=== PATIENT | male | born 1955 | race African-American/Black ===

== ENCOUNTER 2016-09-17 11:29 | Day surgery (SDC) | payer BC ==
[2016-09-07 16:53] LABS: HEMOGLOBIN 13.5 g/dL (13.6-17.8)
[2016-09-07 17:00] LABS: HEMATOCRIT 37.6 % (40.0-51.0)
[2016-09-07 17:05] LABS: BUN (BLOOD UREA NITROGEN) 10 MG/DL (6-23); CHLORIDE, SERUM 103 MMOL/L (96-112); CO2 (CARBON DIOXIDE) 30 MMOL/L (24-34); CREATININE 0.91 MG/DL (0.70-1.30); GFR AFRICAN AMERICAN 105 ML/MIN (>=60); GFR NON AFRICAN AMERICAN 91 ML/MIN (>=60); POTASSIUM, SERUM 4.1 MMOL/L (3.5-5.3); SODIUM, SERUM 139 MMOL/L (135-148)
[2016-09-07 17:06] LABS: CALCIUM, SERUM 8.2 MG/DL (8.5-10.4); GLUCOSE, SERUM 298 MG/DL (60-99)
[~2016-09-17 11:29] MED LIST: ASAB PO; AVAP150 PO; AVAPRO300 MG PO; BUM1 PO; CENTRUM PO; COREG6 PO; DIOV80 PO; GINKO BILOBA; GLUCPH PO; JANUMET1 TAB PO; JANUVIA100 MG PO; JANUVIA50 PO; K500 PO; LEVEMFLXPN SC; LIPITOR40 PO; LOFIB160 PO; LOP25 PO; LOVAZA1 GM PO; MULTIPLE VIT PO; NITROSTAT0.4 MG SL; NORCO1 TA1 PO; NORV10 PO; NORV5 PO; PRILO PO; PRIN10 PO; SEPTRA1 TAB PO; SPIRO25 PO; STARLIX120 PO; WELCHOL 625 MG625 MG PO; WELCHOL PO; WELCHOL POWDER; WELCHOL625 MG OR; XIFAXAN PO; ZOFRANODT8 PO
== END 2016-09-17 23:00 | disposition home or self-care (01) ==
LOC: SDC 11:29
PROVIDERS: Urology
DX: N52.1 Erectile dysfunction due to diseases classified elsewhere (principal); I77.1 Stricture of artery; I25.10 Atherosclerotic heart disease of native coronary artery without angina pectoris; E11.9 Type 2 diabetes mellitus without complications; B19.20 Unspecified viral hepatitis C without hepatic coma; Z53.9 Procedure and treatment not carried out, unspecified reason; Z98.890 Other specified postprocedural states
CPT/HCPCS: 80048; 80076; 85014; 85018; 93005; J1580; J3370

== ENCOUNTER 2016-10-01 11:13 | Observation (INO) | payer SELFPAY ==
[2016-09-26 10:11] LABS: HEMATOCRIT 41.2 % (40.0-51.0); HEMOGLOBIN 14.4 g/dL (13.6-17.8)
[2016-09-26 10:26] LABS: BUN (BLOOD UREA NITROGEN) 12 MG/DL (6-23); CALCIUM, SERUM 9.1 MG/DL (8.5-10.4); CHLORIDE, SERUM 101 MMOL/L (96-112); CO2 (CARBON DIOXIDE) 28 MMOL/L (24-34); CREATININE 0.85 MG/DL (0.70-1.30); GFR AFRICAN AMERICAN 109 ML/MIN (>=60); GFR NON AFRICAN AMERICAN 94 ML/MIN (>=60); GLUCOSE, SERUM 254 MG/DL (60-99); POTASSIUM, SERUM 4.4 MMOL/L (3.5-5.3); SODIUM, SERUM 136 MMOL/L (135-148)
--- NOTE | ~2016-10-01 | OP ---
Record Of Operation [facility] [address] [place]. [address] NAME: DYLON HUSSEIN : 53 STATUS : ADM Sarah PAT#: [id number] AGE: 60 ADM/REG DATE : 10/01/16 MR#: [id number] REPORT SERV DATE: 10/02/16 DICTATED BY: AJITH LUCIANO III DATE: 10/01/16 REPORT STATUS : Draft TRANSCRIBED BY: MODL DATE: 10/01/16 DATE OF PROCEDURE: 10/01/2016 PREOPERATIVE DIAGNOSIS: Erectile dysfunction. POSTOPERATIVE DIAGNOSIS: Erectile dysfunction. PROCEDURE: Insertion of AMS three-piece inflatable penile prosthesis. SURGEON: Ajith Luciano M.D. ANESTHESIA: General. SPECIMENS: None. DRAINS: 7 Art. BLOOD LOSS: 50 mL. INDICATION: Mr. Hussein is a 60-year-old black male with hypertension and diabetes. He has erectile dysfunction refractory to oral agents. He does not desire to pursue penile injection. He has been counseled regarding insertion of the penile prosthesis and has watched instructional video. He voiced his understanding and wishes to proceed with and placement of an inflatable penile prosthesis. He understands the risk of infection and bleeding. He also understands that the glans will not expand while using the prosthesis and that there may be some pain associated with the use of the prosthesis. DESCRIPTION OF PROCEDURE: After consent was obtained, the patient was identified and he was taken to the OR and put to sleep. He was positioned in the supine position in a 10-minute prep which finished with the core sticks was performed. He was then prepped and draped in the usual fashion. A red rubber catheter was used to drain the bladder. I then changed my gloves after catheterization. Artificial erection was performed by injecting a 60 mL of injectable saline into the corporal bodies and an incision was then made in the infrapubic space approximately 1 fingerbreadth above the base of the penis. Cautery was used to obtain hemostasis. Dissection was taken down through Colles fascia into the infrapubic space. The corporal bodies were dissected out bilaterally. 2-0 Monocryl stay sutures were placed in the corporal bodies bilaterally in the lateral position to avoid any damage to the dorsal nerve. The corporotomy was made between the stay suture on the right side, it was approximately 1.5 cm long. The Amna introducer was used to dilate it distally. It was not easy to dilate proximally, therefore, I had to use the Metzenbaum scissors to start the dilation proximally. I ended up dilating with the Amna introducer followed by the 11 and 12 Hegar dilators. The corporal body was then measured, it was 12 cm distally and 10 proximally. Attention was turned to the left corporal bodies and a corporotomy was made in similar fashion. Dilation was performed on this side as well once again proximally, it was more difficult. The measurements were same as on the right side. While the cylinders were being prepared, I dissected above the pubic bone until the rectus fascia was identified. A Record Of Operation [address] [place]. [address] NAME: DYLON HUSSEIN : 53 STATUS : ADM Sarah PAT#: [id number] AGE: 60 ADM/REG DATE : 10/01/16 MR#: [id number] REPORT SERV DATE: 10/02/16 DICTATED BY: AJITH LUCIANO III DATE: 10/01/16 REPORT STATUS : Draft TRANSCRIBED BY: RACHAEL DATE: 10/01/16 small fasciotomy was made, and then using blunt dissection, the space of Retzius was developed, then inserted a 3-inch nasal speculum, which was expanded. I was able to insert the flat reservoir without difficulty. It was then filled to approximately 90 mL. There was no back pressure. I did put one 2-0 Vicryl suture in the fascia on one side of the reservoir tubing. The cylinder was ready. The Amna introducer was used to introduce the cylinder distally on the right side, and using the cylinder as retractor, I was able to insert the proximal end, this was done in a likewise fashion on the opposite side. It was then cycled. There was some buckling of the left cylinder, but after pumping it up, it seated nicely. The corporotomies were then closed using the previously placed stay sutures and one additional suture was placed in the left corporal body. The dissection was then performed along the left side of the penis and down into the midline of the scrotum to develop a pouch for the pump. Nasal speculum was introduced and dissection was taken to the most dependent portion of the scrotum. The pump was then introduced and it sat in a very dependent portion. I then pulled the pump up to the mid scrotum and it was then connected to the reservoir. The pump was pulled back down, pulling down some of the excess tubing. A Art drain was introduced through a separate stab incision and it was placed down into the scrotum. There was some excess tubing, but it lay down nicely over the pubic bone where the previous dissection for the reservoir had been performed. The fascia was then closed with interrupted 2-0 Vicryl sutures and the skin with subcuticular stitch, and sterile dressing was applied. The suction was applied to the drain and 3 liter bag was then placed over the lower abdomen for pressure. The patient was awakened and taken to recovery in stable condition. PH/MODL Ajith Luciano III, M.D. / [id number] CC: Ajith Luciano III, M.D.
[2016-10-01 11:51] LABS: ALBUMIN 4.2 G/DL (3.5-5.0); DIRECT BILIRUBIN 0.2 MG/DL (0.0-0.4); INDIRECT BILIRUBIN(NOT ORDER) 0.5 MG/DL (0.1-0.9); TOTAL BILIRUBIN 0.7 MG/DL (0-1.2)
[2016-10-02] MEDS ORDERED: K500 PO (09:29)
[2016-10-02] MEDS ORDERED: PCET PO (09:30)
== END 2016-10-02 11:17 | disposition home or self-care (01) ==
LOC: SDC/OF 11:13 → PACU 16:01 → 4SO 17:26
PROVIDERS: Urology
PROC: 0VUS0JZ Supplement Penis with Synthetic Substitute, Open Approach (ICD-10-PCS; principal; 2016-10-01 12:45)
DX: N52.9 Male erectile dysfunction, unspecified (principal); K21.9 Gastro-esophageal reflux disease without esophagitis; I25.10 Atherosclerotic heart disease of native coronary artery without angina pectoris; E11.9 Type 2 diabetes mellitus without complications; K58.9 Irritable bowel syndrome, unspecified; E78.00 Pure hypercholesterolemia, unspecified; D64.9 Anemia, unspecified; Z86.19 Personal history of other infectious and parasitic diseases; Z95.5 Presence of coronary angioplasty implant and graft; Z98.890 Other specified postprocedural states
CPT/HCPCS: 54401; 80048; 80076; 82962 ×3; 85014; 85018; 96374; 96376; A9270 ×2; C1813; G0378; J0690; J1580 ×2; J2250; J2270; J2370; J2405; J2550; J2710; J3010; J3370